=== PATIENT | female | born 1975 | race Caucasian/White ===

== ENCOUNTER 2021-09-02 12:15 | Inpatient (IN) | payer MEDICAID, OTHER ==
[~2021-09-02] VITALS: Ht 165.1 cm; Wt 68.2 kg
[~2021-09-02 12:15] MED LIST: ACET-683 PO; ALBU8.5H INH; AMLO1TAB25 PO; ASPI-551 PO; ATOR1TAB21 PO; FLUC100T3 PO; GUAI20TA PO; HYDR50TA PO; PERCOCET PO; THIA100TA PO; TRAM50TA2 PO; VENTAER INH
[2021-09-02] MEDS ORDERED: traMADol 50 MG TAB PO PRN (12:20)
[2021-09-02] MEDS ORDERED: ACETAMINOPHEN TAB 650MG DOSE (2X325MG) PO PRN (12:20)
[2021-09-02 17:45] VITALS: BP 155/89
[2021-09-02] MEDS ORDERED: PILL CUTTER 1 EACH XX PRN (18:45)
[2021-09-02 19:55] VITALS: BP 159/89
[2021-09-02] MEDS ORDERED: COMBIVENT RESPIMAT 100-20MCG INHALER 4GM INH SCH (20:00)
[2021-09-02] MEDS ORDERED: FLUCONAZOLE 100 MG TAB PO SCH (21:00)
[2021-09-02] MEDS ORDERED: LACTOBACILLUS ACIDOPHILUS CAP (BACID) PO SCH (21:00)
[2021-09-02] MEDS ORDERED: **hydrALAZINE** 50 MG TAB PO SCH (21:00)
[2021-09-02] MEDS ORDERED: REMEDY PHYTOPLEX Z-GUARD PASTE 113GM TUBE (FROM STOREROOM PRODUCT) TOP SCH (21:00)
[2021-09-02] MEDS ORDERED: guaiFENesin 200 MG TAB PO SCH (21:00)
[2021-09-02] MEDS ORDERED: PIPERACILLIN/TAZOBACTAM SOD 4.5 GM in D5W MINI-BAG PLUS 50 ML IV SCH (21:00)
[2021-09-02] MEDS ORDERED: DOCUSATE SODIUM 100MG CAPSULE PO SCH (21:00)
[2021-09-02] MEDS ORDERED: SENNA 8.6 MG TAB (SENOKOT) PO SCH (21:00)
[2021-09-02] MEDS: HEPARIN SOD (PORCINE) 5000UNITS/ML 1ML VIAL/SYRINGE SC SCH (21:11)
[2021-09-02 21:14] VITALS: BP 135/81
[2021-09-03 05:03] VITALS: BP 168/93
[2021-09-03] MEDS ORDERED: IPRATROPIUM 0.5MG/ALBUTEROL 2.5MG INH SOL UD 3ML (DUONEB) NEB ONE (05:30)
[2021-09-03] MEDS ORDERED: SODIUM CHLORIDE 0.9% 1000ML IV PRN (06:00)
[2021-09-03] MEDS: HEPARIN SOD (PORCINE) 5000UNITS/ML 1ML VIAL/SYRINGE SC SCH (06:00)
[2021-09-03 06:12] LABS: BASO # 0.2 10^3/uL (0.0-0.2); BASO % 1.6 % (0.0-1.0); EOS # 0.4 10^3/uL (0.0-0.5); EOS % 4.1 % (0.0-3.0); HEMATOCRIT 40.7 % (36.0-47.0); HEMOGLOBIN 13.5 g/dl (12.0-15.5); LYMPH # 1.1 10^3/uL (1.5-5.0); MEAN CORPUSCULAR HEMOGLOBIN 28.7 pg (27.0-33.0); MEAN CORPUSCULAR HGB CONC 33.2 g/dl (32.0-36.5); MEAN CORPUSCULAR VOLUME 86.4 fl (80.0-96.0); MONO # 0.8 10^3/uL (0.0-0.8); MONO % 8.5 % (2.0-8.0); NEUTROPHILS # 6.8 10^3/uL (1.5-8.5); NEUTROPHILS % 73.4 % (36.0-66.0); PLATELET COUNT, AUTOMATED 498 10^3/uL (150-450); RED BLOOD COUNT 4.71 10^6/uL (4.00-5.40); WHITE BLOOD COUNT 9.3 10^3/uL (4.0-10.0)
[2021-09-03 06:31] LABS: MB/CK RELATIVE INDEX 8.89 (< OR =4)
[2021-09-03 06:35] LABS: ALBUMIN 3.3 GM/DL (3.2-5.2); BILIRUBIN,TOTAL 0.5 MG/DL (0.2-1.0); CALCIUM LEVEL 9.2 MG/DL (8.5-10.1); CREATININE FOR GFR 6.28 MG/DL (0.55-1.30); GLOMERULAR FILTRATION RATE 7.6 (>58); POTASSIUM SERUM 4.3 MEQ/L (3.5-5.1); TOTAL PROTEIN 7.9 GM/DL (6.4-8.2)
[2021-09-03] MEDS ORDERED: MAGIC MOUTHWASH SUSPENSION BTL SSP SCH (07:30)
[2021-09-03] MEDS ORDERED: PANTOPRAZOLE 40MG TAB (PROTONIX) PO SCH (09:00)
[2021-09-03] MEDS ORDERED: THIAMINE 100 MG TAB PO SCH (09:00)
[2021-09-03] MEDS ORDERED: ASPIRIN 81MG ENTERIC TABLET PO SCH (09:00)
[2021-09-03] MEDS ORDERED: ATORVASTATIN 20 MG TAB PO SCH (09:00)
== END 2021-09-03 06:30 | disposition still patient (30) | DRG 52 ==
LOC: M PM&R 17:45
PROVIDERS: ADMIT Physical Medicine & Rehabilitation; ATTEND Physical Medicine & Rehabilitation
DX: G93.1 Anoxic brain damage, not elsewhere classified (principal); J96.01 Acute respiratory failure with hypoxia; Z86.74 Personal history of sudden cardiac arrest; R53.1 Weakness; Z79.01 Long term (current) use of anticoagulants; Z79.899 Other long term (current) drug therapy; Z74.1 Need for assistance with personal care; Z74.09 Other reduced mobility; Z99.2 Dependence on renal dialysis; Z86.73 Personal history of transient ischemic attack (TIA), and cerebral infarction without residual deficits; Z88.8 Allergy status to other drugs, medicaments and biological substances; R07.89 Other chest pain

== ENCOUNTER 2021-09-03 06:23 | Inpatient (IN) | payer OTHER ==
[2021-09-03] VITALS (41 sets, daily range): BP systolic 110–158; BP diastolic 67–91
[2021-09-03] MEDS ORDERED: HEPARIN SOD (PORCINE) 5000UNITS/ML 1ML VIAL/SYRINGE IV PRN (06:35)
[2021-09-03] MEDS ORDERED: ALBUTEROL SULFATE 2.5 MG/0.5 ML INH NEB SOLN NEB PRN (06:40)
[2021-09-03] MEDS ORDERED: HOME MED LIST COMPLETE! XX SCH (07:25)
[2021-09-03 07:30] LABS: ABG BASE EXCESS -1.2 (-2.0-2.0); ABG HCO3 21.7 MEQ/L (22.0-26.0); ABG PARTIAL PRESSURE CO2 31.3 mmHg (35.0-45.0); ABG PARTIAL PRESSURE O2 57.7 mmHg (75.0-100.0); ABG STANDARD HCO3 23.3 MEQ/L (22.0-26.0); ABG TOTAL CO2 22.6 MEQ/L (22.0-29.0); ABG pH (ARTERIAL) 7.458 UNITS (7.350-7.450)
[2021-09-03] MEDS ORDERED: HEPARIN SOD (PORCINE) 5000UNITS/ML 1ML VIAL/SYRINGE IV ONE (07:45)
[2021-09-03] MEDS ORDERED: HEPARIN DRIP 25,000 UNITS in IV 1 EA IV SCH (08:00)
[2021-09-03] MEDS ORDERED: IPRATROPIUM 0.5MG/ALBUTEROL 2.5MG INH SOL UD 3ML (DUONEB) NEB SCH (08:00)
[2021-09-03 08:16] LABS: HEMATOCRIT 39.3 % (36.0-47.0); HEMOGLOBIN 13.4 g/dl (12.0-15.5); MEAN CORPUSCULAR HEMOGLOBIN 29.1 pg (27.0-33.0); MEAN CORPUSCULAR HGB CONC 34.1 g/dl (32.0-36.5); MEAN CORPUSCULAR VOLUME 85.4 fl (80.0-96.0); PLATELET COUNT, AUTOMATED 466 10^3/uL (150-450); WHITE BLOOD COUNT 12.8 10^3/uL (4.0-10.0)
[2021-09-03] MEDS: ONDANSETRON 4MG TAB PO PRN ×2 (09:24→15:26)
[2021-09-03] MEDS: guaiFENesin ER 600 MG TAB PO SCH ×2 (09:26→19:53)
[2021-09-03] MEDS: PANTOPRAZOLE 40MG VIAL IV SCH (09:26)
[2021-09-03] MEDS: IPRATROPIUM 0.5MG/ALBUTEROL 2.5MG INH SOL UD 3ML (DUONEB) NEB SCH ×3 (11:01→19:35)
[2021-09-03] MEDS ORDERED: SODIUM CHLORIDE 0.9% 1000ML IV PRN (12:35)
[2021-09-03] MEDS: ACETAMINOPHEN TAB 650MG DOSE (2X325MG) PO PRN (15:27)
[2021-09-04] VITALS (12 sets, daily range): BP systolic 117–136; BP diastolic 69–87; O2SAT 94
[2021-09-04] MEDS: IPRATROPIUM 0.5MG/ALBUTEROL 2.5MG INH SOL UD 3ML (DUONEB) NEB SCH ×6 (00:27→20:11)
[2021-09-04 04:02] LABS: BASO # 0.2 10^3/uL (0.0-0.2); BASO % 1.4 % (0.0-1.0); EOS # 0.4 10^3/uL (0.0-0.5); EOS % 3.3 % (0.0-3.0); HEMATOCRIT 40.2 % (36.0-47.0); HEMOGLOBIN 13.7 g/dl (12.0-15.5); LYMPH # 1.4 10^3/uL (1.5-5.0); MEAN CORPUSCULAR HEMOGLOBIN 29.5 pg (27.0-33.0); MEAN CORPUSCULAR HGB CONC 34.1 g/dl (32.0-36.5); MEAN CORPUSCULAR VOLUME 86.5 fl (80.0-96.0); MONO # 1.3 10^3/uL (0.0-0.8); NEUTROPHILS # 9.5 10^3/uL (1.5-8.5); NEUTROPHILS % 73.8 % (36.0-66.0); PLATELET COUNT, AUTOMATED 502 10^3/uL (150-450); RED BLOOD COUNT 4.65 10^6/uL (4.00-5.40); WHITE BLOOD COUNT 12.9 10^3/uL (4.0-10.0)
[2021-09-04 04:16] LABS: ALBUMIN 3.3 GM/DL (3.2-5.2); BILIRUBIN,TOTAL 0.7 MG/DL (0.2-1.0); CALCIUM LEVEL 8.7 MG/DL (8.5-10.1); CREATININE FOR GFR 5.03 MG/DL (0.55-1.30); GLOMERULAR FILTRATION RATE 9.8 (>58); POTASSIUM SERUM 3.8 MEQ/L (3.5-5.1); TOTAL PROTEIN 8.7 GM/DL (6.4-8.2)
[2021-09-04] MEDS: guaiFENesin ER 600 MG TAB PO SCH ×2 (08:06→20:23)
[2021-09-04] MEDS: PANTOPRAZOLE 40MG VIAL IV SCH (08:06)
[2021-09-04] MEDS: ACETAMINOPHEN TAB 650MG DOSE (2X325MG) PO PRN ×2 (12:55→19:27)
[2021-09-04] MEDS: HEPARIN SOD (PORCINE) 5000UNITS/ML 1ML VIAL/SYRINGE SQ SCH (20:23)
[2021-09-05] MEDS: IPRATROPIUM 0.5MG/ALBUTEROL 2.5MG INH SOL UD 3ML (DUONEB) NEB SCH ×6 (04:00→20:05)
[2021-09-05] MEDS: ACETAMINOPHEN TAB 650MG DOSE (2X325MG) PO PRN ×3 (05:43→14:59)
[2021-09-05 06:00] VITALS: BP 136/87
[2021-09-05] MEDS ORDERED: SODIUM CHLORIDE 0.9% 1000ML IV PRN (06:00)
[2021-09-05 06:30] LABS: HEMATOCRIT 39.9 % (36.0-47.0); HEMOGLOBIN 13.4 g/dl (12.0-15.5); MEAN CORPUSCULAR HEMOGLOBIN 28.3 pg (27.0-33.0); MEAN CORPUSCULAR HGB CONC 33.6 g/dl (32.0-36.5); MEAN CORPUSCULAR VOLUME 84.2 fl (80.0-96.0); PLATELET COUNT, AUTOMATED 459 10^3/uL (150-450); RED BLOOD COUNT 4.74 10^6/uL (4.00-5.40); WHITE BLOOD COUNT 10.2 10^3/uL (4.0-10.0)
[2021-09-05 06:54] LABS: CALCIUM LEVEL 8.6 MG/DL (8.5-10.1); CREATININE FOR GFR 6.78 MG/DL (0.55-1.30); GLOMERULAR FILTRATION RATE 6.9 (>58); MAGNESIUM LEVEL 2.4 MG/DL (1.8-2.4)
[2021-09-05] MEDS: guaiFENesin ER 600 MG TAB PO SCH ×2 (07:48→20:08)
[2021-09-05] MEDS: HEPARIN SOD (PORCINE) 5000UNITS/ML 1ML VIAL/SYRINGE SQ SCH ×2 (07:49→20:08)
[2021-09-05] MEDS: PANTOPRAZOLE 40MG VIAL IV SCH (07:49)
[2021-09-05 12:00] VITALS: BP 134/89
[2021-09-05] MEDS: PERCOCET 5MG/325MG TAB PO PRN (19:43)
[2021-09-05 20:09] VITALS: BP 132/86
[2021-09-05 21:00] VITALS: O2SAT 96
[2021-09-06] MEDS: guaiFENesin ER 600 MG TAB PO SCH ×2 (05:17→20:15)
[2021-09-06] MEDS: HEPARIN SOD (PORCINE) 5000UNITS/ML 1ML VIAL/SYRINGE SQ SCH ×2 (05:19→20:15)
[2021-09-06] MEDS: PERCOCET 5MG/325MG TAB PO PRN ×3 (05:19→20:16)
[2021-09-06] MEDS: PANTOPRAZOLE 40MG VIAL IV SCH (05:20)
[2021-09-06] MEDS: IPRATROPIUM 0.5MG/ALBUTEROL 2.5MG INH SOL UD 3ML (DUONEB) NEB SCH ×6 (05:34→20:03)
[2021-09-06 06:00] VITALS: BP 135/93
[2021-09-06 06:00] LABS: HEMATOCRIT 42.8 % (36.0-47.0); HEMOGLOBIN 14.8 g/dl (12.0-15.5); MEAN CORPUSCULAR HEMOGLOBIN 28.9 pg (27.0-33.0); MEAN CORPUSCULAR HGB CONC 34.6 g/dl (32.0-36.5); MEAN CORPUSCULAR VOLUME 83.6 fl (80.0-96.0); PLATELET COUNT, AUTOMATED 531 10^3/uL (150-450); RED BLOOD COUNT 5.12 10^6/uL (4.00-5.40); WHITE BLOOD COUNT 11.5 10^3/uL (4.0-10.0)
[2021-09-06 06:31] LABS: CREATININE FOR GFR 7.67 MG/DL (0.55-1.30); POTASSIUM SERUM 4.7 MEQ/L (3.5-5.1)
[2021-09-06] MEDS ORDERED: SODIUM CHLORIDE 0.9% 1000ML IV PRN (08:50)
[2021-09-06] MEDS ORDERED: LIDOCAINE 1% SDV 5ML VIAL SC PRN (08:50)
[2021-09-06] MEDS: DOCUSATE SODIUM 100MG CAPSULE PO SCH (20:16)
[2021-09-06 20:18] VITALS: BP 121/85
[2021-09-06 22:47] VITALS: O2SAT 95
[2021-09-07] MEDS: IPRATROPIUM 0.5MG/ALBUTEROL 2.5MG INH SOL UD 3ML (DUONEB) NEB SCH ×6 (04:00→20:18)
[2021-09-07] MEDS: PERCOCET 5MG/325MG TAB PO PRN (05:12)
[2021-09-07 06:00] VITALS: BP 124/86; O2SAT 92
[2021-09-07 06:04] LABS: HEMATOCRIT 41.7 % (36.0-47.0); HEMOGLOBIN 14.2 g/dl (12.0-15.5); MEAN CORPUSCULAR HEMOGLOBIN 28.6 pg (27.0-33.0); MEAN CORPUSCULAR HGB CONC 34.1 g/dl (32.0-36.5); MEAN CORPUSCULAR VOLUME 84.1 fl (80.0-96.0); PLATELET COUNT, AUTOMATED 481 10^3/uL (150-450); RED BLOOD COUNT 4.96 10^6/uL (4.00-5.40); WHITE BLOOD COUNT 10.6 10^3/uL (4.0-10.0)
[2021-09-07 06:28] LABS: CALCIUM LEVEL 10.1 MG/DL (8.5-10.1); CREATININE FOR GFR 5.09 MG/DL (0.55-1.30); GLOMERULAR FILTRATION RATE 9.6 (>58); POTASSIUM SERUM 4.5 MEQ/L (3.5-5.1)
[2021-09-07] MEDS: PANTOPRAZOLE 40MG TAB (PROTONIX) PO SCH (08:42)
[2021-09-07] MEDS: HEPARIN SOD (PORCINE) 5000UNITS/ML 1ML VIAL/SYRINGE SQ SCH ×2 (08:42→20:12)
[2021-09-07] MEDS: ONDANSETRON 4MG TAB PO PRN (08:43)
[2021-09-07] MEDS: DOCUSATE SODIUM 100MG CAPSULE PO SCH ×2 (08:43→20:12)
[2021-09-07] MEDS: guaiFENesin ER 600 MG TAB PO SCH ×2 (08:43→20:13)
[2021-09-07] MEDS ORDERED: SODIUM CHLORIDE 0.9% 1000ML IV PRN (11:30)
[2021-09-07] MEDS: ACETAMINOPHEN TAB 650MG DOSE (2X325MG) PO PRN (13:36)
[2021-09-07 14:00] VITALS: BP 122/85
[2021-09-07 22:00] VITALS: BP 125/87
[2021-09-08] MEDS: PERCOCET 5MG/325MG TAB PO PRN ×3 (03:46→20:17)
[2021-09-08] MEDS: IPRATROPIUM 0.5MG/ALBUTEROL 2.5MG INH SOL UD 3ML (DUONEB) NEB SCH ×6 (04:00→19:32)
[2021-09-08 05:55] LABS: HEMATOCRIT 38.9 % (36.0-47.0); HEMOGLOBIN 13.2 g/dl (12.0-15.5); MEAN CORPUSCULAR HEMOGLOBIN 28.4 pg (27.0-33.0); MEAN CORPUSCULAR HGB CONC 33.9 g/dl (32.0-36.5); MEAN CORPUSCULAR VOLUME 83.7 fl (80.0-96.0); PLATELET COUNT, AUTOMATED 386 10^3/uL (150-450); RED BLOOD COUNT 4.65 10^6/uL (4.00-5.40); WHITE BLOOD COUNT 10.5 10^3/uL (4.0-10.0)
[2021-09-08 06:00] VITALS: BP 111/80
[2021-09-08 06:13] LABS: CALCIUM LEVEL 9.4 MG/DL (8.5-10.1); POTASSIUM SERUM 4.2 MEQ/L (3.5-5.1)
[2021-09-08] MEDS: DOCUSATE SODIUM 100MG CAPSULE PO SCH ×2 (07:41→20:16)
[2021-09-08] MEDS: PANTOPRAZOLE 40MG TAB (PROTONIX) PO SCH ×2 (07:41→20:16)
[2021-09-08] MEDS: HEPARIN SOD (PORCINE) 5000UNITS/ML 1ML VIAL/SYRINGE SQ SCH ×2 (07:41→20:17)
[2021-09-08] MEDS: guaiFENesin ER 600 MG TAB PO SCH ×2 (07:42→20:16)
[2021-09-08 14:00] VITALS: BP 115/78
[2021-09-08] MEDS: ACETAMINOPHEN TAB 650MG DOSE (2X325MG) PO PRN (15:40)
[2021-09-08 18:00] VITALS: BP 113/75
[2021-09-08 22:00] VITALS: BP 119/61
[2021-09-09] MEDS: IPRATROPIUM 0.5MG/ALBUTEROL 2.5MG INH SOL UD 3ML (DUONEB) NEB SCH ×7 (03:33→23:30)
[2021-09-09] MEDS: PERCOCET 5MG/325MG TAB PO PRN ×3 (05:36→20:01)
[2021-09-09 05:37] LABS: HEMATOCRIT 38.1 % (36.0-47.0); HEMOGLOBIN 13.2 g/dl (12.0-15.5); MEAN CORPUSCULAR HEMOGLOBIN 29.3 pg (27.0-33.0); MEAN CORPUSCULAR HGB CONC 34.6 g/dl (32.0-36.5); MEAN CORPUSCULAR VOLUME 84.5 fl (80.0-96.0); PLATELET COUNT, AUTOMATED 326 10^3/uL (150-450); RED BLOOD COUNT 4.51 10^6/uL (4.00-5.40); WHITE BLOOD COUNT 7.9 10^3/uL (4.0-10.0)
[2021-09-09 06:00] VITALS: BP 123/79
[2021-09-09 06:00] LABS: CALCIUM LEVEL 8.7 MG/DL (8.5-10.1); CREATININE FOR GFR 4.04 MG/DL (0.55-1.30); GLOMERULAR FILTRATION RATE 12.6 (>58)
[2021-09-09] MEDS: DOCUSATE SODIUM 100MG CAPSULE PO SCH ×2 (10:23→20:00)
[2021-09-09] MEDS: PANTOPRAZOLE 40MG TAB (PROTONIX) PO SCH ×2 (10:23→20:00)
[2021-09-09] MEDS: HEPARIN SOD (PORCINE) 5000UNITS/ML 1ML VIAL/SYRINGE SQ SCH ×2 (10:24→20:01)
[2021-09-09] MEDS: guaiFENesin ER 600 MG TAB PO SCH ×2 (10:24→20:01)
[2021-09-09 20:48] VITALS: BP 121/79
[2021-09-10] MEDS ORDERED: SODIUM CHLORIDE 0.9% 1000ML IV PRN (00:15)
[2021-09-10] MEDS: IPRATROPIUM 0.5MG/ALBUTEROL 2.5MG INH SOL UD 3ML (DUONEB) NEB SCH ×4 (03:11→15:09)
[2021-09-10] MEDS: PERCOCET 5MG/325MG TAB PO PRN ×3 (04:21→20:18)
[2021-09-10] MEDS: DOCUSATE SODIUM 100MG CAPSULE PO SCH ×2 (05:26→20:15)
[2021-09-10] MEDS: PANTOPRAZOLE 40MG TAB (PROTONIX) PO SCH ×2 (05:26→20:16)
[2021-09-10] MEDS: guaiFENesin ER 600 MG TAB PO SCH ×2 (05:26→20:16)
[2021-09-10 05:43] VITALS: BP 123/62
[2021-09-10 06:22] LABS: HEMATOCRIT 34.5 % (36.0-47.0); HEMOGLOBIN 12.1 g/dl (12.0-15.5); MEAN CORPUSCULAR HGB CONC 35.1 g/dl (32.0-36.5); MEAN CORPUSCULAR VOLUME 85.4 fl (80.0-96.0); PLATELET COUNT, AUTOMATED 309 10^3/uL (150-450); RED BLOOD COUNT 4.04 10^6/uL (4.00-5.40); WHITE BLOOD COUNT 7.7 10^3/uL (4.0-10.0)
[2021-09-10 06:56] LABS: CALCIUM LEVEL 9.5 MG/DL (8.5-10.1); CREATININE FOR GFR 4.05 MG/DL (0.55-1.30); GLOMERULAR FILTRATION RATE 12.5 (>58); POTASSIUM SERUM 3.7 MEQ/L (3.5-5.1)
[2021-09-10] MEDS: HEPARIN SOD (PORCINE) 5000UNITS/ML 1ML VIAL/SYRINGE SQ SCH ×2 (09:00→20:16)
[2021-09-10 14:15] VITALS: BP 119/76
[2021-09-10 21:00] VITALS: BP 122/82
[2021-09-11 06:00] VITALS: BP 121/83
[2021-09-11] MEDS: DOCUSATE SODIUM 100MG CAPSULE PO SCH ×2 (08:53→20:26)
[2021-09-11] MEDS: guaiFENesin ER 600 MG TAB PO SCH ×2 (08:57→20:27)
[2021-09-11] MEDS: PANTOPRAZOLE 40MG TAB (PROTONIX) PO SCH ×2 (08:58→20:26)
[2021-09-11] MEDS: HEPARIN SOD (PORCINE) 5000UNITS/ML 1ML VIAL/SYRINGE SQ SCH ×2 (08:59→20:29)
[2021-09-11] MEDS: PERCOCET 5MG/325MG TAB PO PRN ×2 (09:05→20:36)
[2021-09-11 20:00] VITALS: BP 119/81
[2021-09-12 05:30] VITALS: BP 119/75
[2021-09-12 06:49] LABS: HEMATOCRIT 34.6 % (36.0-47.0); HEMOGLOBIN 11.6 g/dl (12.0-15.5); MEAN CORPUSCULAR HEMOGLOBIN 29.4 pg (27.0-33.0); MEAN CORPUSCULAR HGB CONC 33.5 g/dl (32.0-36.5); MEAN CORPUSCULAR VOLUME 87.8 fl (80.0-96.0); PLATELET COUNT, AUTOMATED 282 10^3/uL (150-450); RED BLOOD COUNT 3.94 10^6/uL (4.00-5.40); WHITE BLOOD COUNT 6.1 10^3/uL (4.0-10.0)
[2021-09-12 07:07] LABS: CALCIUM LEVEL 9.2 MG/DL (8.5-10.1); CREATININE FOR GFR 2.64 MG/DL (0.55-1.30); GLOMERULAR FILTRATION RATE 20.5 (>58); POTASSIUM SERUM 3.8 MEQ/L (3.5-5.1)
[2021-09-12] MEDS: PANTOPRAZOLE 40MG TAB (PROTONIX) PO SCH (08:44)
[2021-09-12] MEDS: guaiFENesin ER 600 MG TAB PO SCH (08:44)
[2021-09-12] MEDS: DOCUSATE SODIUM 100MG CAPSULE PO SCH (08:44)
[2021-09-12] MEDS: HEPARIN SOD (PORCINE) 5000UNITS/ML 1ML VIAL/SYRINGE SQ SCH (08:45)
[2021-09-12 14:00] VITALS: BP 122/77
[2021-09-12] MEDS: ACETAMINOPHEN TAB 650MG DOSE (2X325MG) PO PRN (15:14)
[2021-09-12 15:15] LABS: CALCIUM LEVEL 9.5 MG/DL (8.5-10.1); CREATININE FOR GFR 2.52 MG/DL (0.55-1.30); GLOMERULAR FILTRATION RATE 21.7 (>58); POTASSIUM SERUM 3.6 MEQ/L (3.5-5.1)
[2021-09-12] MEDS ORDERED: LIDOCAINE 1% MDV 20ML VIAL SC ONE (15:45)
[2021-09-12] MEDS ORDERED: ACET-683 PO (16:52)
[2021-09-12] MEDS ORDERED: THIA100TA PO (16:52)
[2021-09-12] MEDS ORDERED: VENTAER INH (16:52)
[2021-09-12] MEDS ORDERED: PERCOCET PO (16:52)
[2021-09-12] MEDS ORDERED: GUAI20TA PO (16:52)
[2021-09-12] MEDS ORDERED: AMLO1TAB25 PO (16:52)
[2021-09-12] MEDS ORDERED: ATOR1TAB21 PO (16:52)
[2021-09-12] MEDS ORDERED: HYDR50TA PO (16:52)
[2021-09-12] MEDS ORDERED: ASPI-551 PO (16:52)
== END 2021-09-12 17:45 | disposition home or self-care (01) | DRG 133 ==
LOC: M ICU 06:30 → M MS5PR 09-04 17:00
PROVIDERS: ADMIT Internal Medicine; ATTEND Internal Medicine
PROC: 5A1D70Z Performance of Urinary Filtration, Intermittent, Less than 6 Hours Per Day (ICD-10-PCS; 2021-09-03)
PROC: 5A09357 Assistance with Respiratory Ventilation, Less than 24 Consecutive Hours, Continuous Positive Airway Pressure (ICD-10-PCS; 2021-09-03)
PROC: 0JPT33Z Removal of Infusion Device from Trunk Subcutaneous Tissue and Fascia, Percutaneous Approach (ICD-10-PCS; principal; 2021-09-12)
DX: J96.01 Acute respiratory failure with hypoxia (principal); N17.0 Acute kidney failure with tubular necrosis; Z86.74 Personal history of sudden cardiac arrest; J90 Pleural effusion, not elsewhere classified; E87.1 Hypo-osmolality and hyponatremia; F17.210 Nicotine dependence, cigarettes, uncomplicated; Z86.73 Personal history of transient ischemic attack (TIA), and cerebral infarction without residual deficits; Z79.82 Long term (current) use of aspirin; Z79.899 Other long term (current) drug therapy; Z88.8 Allergy status to other drugs, medicaments and biological substances; J98.11 Atelectasis; I11.0 Hypertensive heart disease with heart failure; D64.9 Anemia, unspecified; I50.9 Heart failure, unspecified

== ENCOUNTER 2024-03-16 11:34 | Emergency (ER) | payer OTHER, SELFPAY ==
[~2024-03-16] VITALS: Ht 162.6 cm; Wt 70.9 kg
[~2024-03-16 11:34] MED LIST changes: -HYDR50TA PO; +HYDR50TA47 PO
[2024-03-16 12:02] LABS: BASO # 0.1 10^3/uL (0.0-0.2); BASO % 1.2 % (0.0-1.0); EOS # 0.2 10^3/uL (0.0-0.5); EOS % 3.9 % (0.0-3.0); HEMOGLOBIN 14.5 g/dl (12.0-15.5); LYMPH % 40.7 % (24.0-44.0); MEAN CORPUSCULAR HEMOGLOBIN 29.8 pg (27.0-33.0); MEAN CORPUSCULAR VOLUME 90.5 fl (80.0-96.0); MONO # 0.3 10^3/uL (0.0-0.8); NEUTROPHILS # 2.3 10^3/uL (1.5-8.5); PLATELET COUNT, AUTOMATED 252 10^3/uL (150-450); RED BLOOD COUNT 4.86 10^6/uL (4.00-5.40); WHITE BLOOD COUNT 4.8 10^3/uL (4.0-10.0)
[2024-03-16] MEDS: ASPIRIN 81MG CHEW TABLET PO ONE (12:32)
[2024-03-16] MEDS: NITROGLYCERIN 0.4MG SUBL TABLET SL PRN (12:33)
[2024-03-16 12:35] LABS: LIPASE 48 U/L (12-53)
[2024-03-16 12:37] LABS: CPK CREATINE PHOSPHOKINASE 64 U/L (34-145)
[2024-03-16 12:38] VITALS: BP 150/83
[2024-03-16 12:38] LABS: ALBUMIN 4.1 G/DL (3.2-5.2); ALKALINE PHOSPHATASE 64 U/L (35-104); ALT/SGPT 20 U/L (7.0-40); AST/SGOT 15 U/L (<34); BILIRUBIN,DIRECT 0.1 MG/DL (<0.4); BILIRUBIN,TOTAL 0.5 MG/DL (0.3-1.2); BLOOD UREA NITROGEN 22 MG/DL (9-23); CALCIUM LEVEL 9.6 MG/DL (8.5-10.1); CARBON DIOXIDE LEVEL 30 MMOL/L (20-31); CHLORIDE LEVEL 105 MMOL/L (98-107); CK-MB VALUE MASS < 1.0 NG/ML (<3.6); CREATININE FOR GFR 0.64 MG/DL (0.55-1.30); GLOMERULAR FILTRATION RATE > 60.0 (>51); GLUCOSE, FASTING 95 MG/DL (60-100); MB/CK RELATIVE INDEX 1.56 (< OR =4); POTASSIUM SERUM 3.8 MMOL/L (3.5-5.1); SODIUM LEVEL 142 MMOL/L (136-145); TOTAL PROTEIN 7.9 G/DL (5.7-8.2)
[2024-03-16 12:39] LABS: FREE T4 1.46 NG/DL (0.89-1.76); THYROID STIMULATING HORMONE 0.661 uIU/ML (0.55-4.78)
[2024-03-16] MEDS ORDERED: ISOVUE-370 76% 100ML VIAL As Ordered ONE (13:03)
[2024-03-16 13:38] LABS: CK-MB VALUE MASS < 1.0 NG/ML (<3.6)
[2024-03-16 13:39] LABS: CPK CREATINE PHOSPHOKINASE 53 U/L (34-145); MB/CK RELATIVE INDEX 1.88 (< OR =4)
[2024-03-16 14:15] VITALS: BP 135/75; TEMP 97.3; O2SAT 99
== END 2024-03-16 14:38 | disposition home or self-care (01) ==
LOC: M ED 11:34
DX: R07.9 Chest pain, unspecified (principal); I25.2 Old myocardial infarction; I10 Essential (primary) hypertension; N17.9 Acute kidney failure, unspecified; F17.200 Nicotine dependence, unspecified, uncomplicated; Z79.82 Long term (current) use of aspirin; Z79.899 Other long term (current) drug therapy; Z88.5 Allergy status to narcotic agent
CPT/HCPCS: 71045; 71275; 80047; 80048; 80076; 82550; 82553; 83690; 83880; 84439; 84443; 84484; 85025; 85730; 93005; 93041; 94760; 99285; Q9967